=== PATIENT | female | born 1985 | race African-American/Black ===

== ENCOUNTER 2023-11-14 07:56 | Outpatient (CLI) | payer BC, SELFPAY ==
[2023-11-14 20:02] LABS: Beta HCG Quantitative < 2.39 mIU/ML
== END 2023-11-14 07:57 | disposition home or self-care (01) ==
LOC: ANHGOSHLAB 07:57
PROVIDERS: Visit Provider Student in an Organized Health Care Education/Training Program
DX: Z30.430 Encounter for insertion of intrauterine contraceptive device (principal)
CPT/HCPCS: 36415; 84702